=== PATIENT | female | born 1960 ===

== ENCOUNTER 2020-10-08 22:15 | Emergency (ER) | payer OTHER ==
--- NOTE | 2020-10-08 23:15 | EDM.PDOC ---
ED HPI GENERAL MEDICAL PROBLEM - General Chief Complaint: ENT Problem Stated Complaint: NOSEBLEED Time Seen by Provider: 10/08/20 22:52 - History of Present Illness INITIAL COMMENTS - FREE TEXT/NARRATIVE: History of present illness: [] Patient was pushing with her arms against machinery and fell forward and hit her nose. She has pain and swelling in her nose. She has no neck pain. She has no loss of consciousness. She has no other injury. She has no neurologic deficit. Review of systems: As per history of present illness and below otherwise all systems reviewed and negative. Past medical history: As per history of present illness and as reviewed below otherwise noncontributory. Surgical history: As per history of present illness and as reviewed below otherwise noncontributory. Social history: No reported history of drug or alcohol abuse. Family history: As per history of present illness and as reviewed below otherwise noncontributory. Physical exam: Constitutional - well developed, well-nourished and in no acute distress HEENT -abrasion on the bridge of her nose with tenderness and swelling of the nose. No septal hematoma. No deviation of the septum. Alignment of the nose is normal. Normocephalic, no evidence of trauma - external nose and mouth normal - no mass in neck and no JVD - mucosae moist EYES - full EOM, PERRL, no icterus - no evidence of inflammation, injection, or drainage Respiratory - no respiratory distress, equal bilateral expansion Musculoskeletal no gross deformity of long bones or joints - no tenderness, swelling or edema Neurologic - Alert and oriented times four - CN II-XII grossly intact - motor sensory and coordination symmetrically normal Psychiatric - appropriate mood and affect with normal thought content Hematologic - No petechiae or purpura - mucosa appropriate color and sclera not pale - normal nail bed color and refill Integument - no rash or evidence of trauma - normal turgor Diagnostics: [] Therapeutics: [] Impression: [] Plan: [] Definitive disposition and diagnosis as appropriate pending reevaluation and review of above. nasal area Pain Score (Numeric/FACES): 7 - Related Data Allergies Allergy/AdvReac Type Severity Reaction Status Date / Time Seasonal allergies Allergy Sneezing Uncoded 10/08/20 22:44 Home Meds: Home Meds Aspirin 81 mg PO 10/01/13 [History] Calcium Carbonate/Vitamin D3 [Calcium 500-Vit D3 200 Caplet] 1 tab PO DAILY 10/01/13 [History] Fluticasone Propionate [Flonase] 16 gm NS PRN 10/01/13 [History] Loratadine [Claritin] 10 mg PO DAILY PRN 10/01/13 [History] One A Day Women's 1 tab PO DAILY 10/01/13 [History] hydroCHLOROthiazide [Hydrochlorothiazide] 1 tab PO DAILY 10/01/13 [History] Desonide [Desonide 0.05%] 1 applic TOP ASDIRECTED 02/28/15 [History] Tamoxifen Citrate 1 tab PO DAILY 02/28/15 [History] Past Medical History Cardiovascular History: Reports: High Cholesterol Musculoskeletal History: Reports: Fracture Other Musculoskeletal History: hx: fracturing wrist Hematologic History: Reports: Anemia Oncologic (Cancer) History: Reports: Breast - Past Surgical History Other Oncologic Surgeries/Procedures: Breast lumpectomy ED ROS GENERAL - Review of Systems Review Of Systems: Comprehensive ROS is negative, except as noted in HPI. ED EXAM, GENERAL - Physical Exam Exam: See Below Free Text/Narrative:: My physical exam as in the HPI Course - Vital Signs Last Recorded V/S: Last Vital Signs Temp 36.2 C 10/08/20 22:44 Pulse 69 10/08/20 22:44 Resp 18 10/08/20 22:44 BP 173/74 H 10/08/20 22:44 Pulse Ox 97 10/08/20 22:44 Departure - Departure Time of Disposition: 23:13 Disposition: Home, Self-Care 01 Condition: Good Clinical Impression: Nasal fracture - Discharge Information Instructions: Nasal Fracture, [id number] Referrals: Edna Winn DO [Primary Care Provider] - Additional Instructions: [facility] - Primary Care [address] [place] [id number] [address] [id number] The following information is given to patients seen in the emergency department who are being discharged to home. This information is to outline your options for follow-up care. We provide all patients seen in our emergency department with a follow-up referral. The need for follow-up, as well as the timing and circumstances, are variable depending upon the specifics of your emergency department visit. If you don't have a primary care physician on staff, we will provide you with a referral. We always advise you to contact your personal physician following an emergency department visit to inform them of the circumstance of the visit and for follow-up with them and/or the need for any referrals to a consulting specialist. The emergency department will also refer you to a specialist when appropriate. This referral assures that you have the opportunity for follow-up care with a specialist. All of these measure are taken in an effort to provide you with optimal care, which includes your follow-up. Under all circumstances we always encourage you to contact your private physician who remains a resource for coordinating your care. When calling for follow-up care, please make the office aware that this follow-up is from your recent emergency room visit. If for any reason you are refused follow-up, please contact the [facility] Emergency Department at and asked to speak to the emergency department charge nurse. Sepsis Event Note (ED) - Focused Exam Vital Signs: Vital Signs Temp Pulse Resp BP Pulse Ox 10/08/20 22:44 36.2 C 69 18 173/74 H 97
[2020-10-09 00:33] VITALS: BP 151/72; PULSE 68
== END 2020-10-08 23:30 | disposition home or self-care (01) ==
LOC: MW.ED 22:15
DX: S02.2XXA Fracture of nasal bones, initial encounter for closed fracture (principal); D64.9 Anemia, unspecified; E78.00 Pure hypercholesterolemia, unspecified; Z91.048 Other nonmedicinal substance allergy status; Z79.82 Long term (current) use of aspirin; Z79.899 Other long term (current) drug therapy; W18.39XA Other fall on same level, initial encounter
CPT/HCPCS: 99283

== ENCOUNTER 2022-07-16 02:15 | Emergency (ER) | payer OTHER ==
[2022-07-16 02:45] VITALS: PULSE 66
[2022-07-16 03:33] LABS: BASOPHILS PERCENT AUTO 0.4 % (0.0-1.5); EOSINOPHILS ABSOLUTE AUTO 0.2 K/uL (0.0-0.7); EOSINOPHILS PERCENT AUTO 2.2 % (0.0-7.0); HEMOGLOBIN 13.5 g/dL (12.0-16.0); LYMPHOCYTES ABSOLUTE AUTO 2.4 K/uL (0.6-2.4); LYMPHOCYTES PERCENT AUTO 32.1 % (16.0-40.0); MEAN CORPUSCULAR HEMOGLOBIN 30.5 pg (27.0-32.0); MEAN CORPUSCULAR HGB CONC 33.8 g/dL (31.0-37.0); MEAN CORPUSCULAR VOLUME 90.3 fL (80.0-98.0); MONOCYTES ABSOLUTE AUTO 0.8 K/uL (0.0-0.8); MONOCYTES PERCENT AUTO 11.2 % (0.0-15.0); NEUTROPHILS PERCENT AUTO 54.1 % (48.0-80.0); PLATELET COUNT,PLT 303 K/uL (150-400); RED BLOOD CELL COUNT 4.43 M/uL (4.30-5.90); WHITE BLOOD CELL COUNT,WBC 7.33 K/uL (4.0-11.0)
[2022-07-16 03:55] LABS: A/G RATIO 1.2 (0.9-1.6); ALANINE AMINOTRANSFERASE,ALT 42 IU/L (14-63); ALBUMIN 3.9 g/dL (3.4-5.0); ALKALINE PHOSPHATASE 72 U/L (46-116); ASPARTATE AMNIOTRANSFERASE,AST 22 IU/L (15-37); BILIRUBIN TOTAL 0.4 mg/dL (0.2-1.0); BLOOD UREA NITROGEN,BUN 24 mg/dL (7.0-18.0); CALCIUM 8.9 mg/dL (8.5-10.1); CARBON DIOXIDE,CO2 28.7 mmol/L (21.0-32.0); CHLORIDE,CL 107 mmol/L (98-107); CREATININE 1.1 mg/dL (0.6-1.0); ESTIMATED GFR 56 mL/min (>60); GLUCOSE RANDOM 120 mg/dL (74-106); MAGNESIUM 2.1 mg/dL (1.8-2.4); POTASSIUM,K 3.6 mmol/L (3.5-5.1); PROTEIN TOTAL,TP 7.2 g/dL (6.4-8.2); SODIUM,NA 145 mmol/L (136-145)
[2022-07-16 04:31] VITALS: BP 130/58
== END 2022-07-16 04:30 | disposition home or self-care (01) ==
LOC: MW.ED 02:15
DX: I10 Essential (primary) hypertension (principal); M25.511 Pain in right shoulder; Z79.899 Other long term (current) drug therapy; Z91.048 Other nonmedicinal substance allergy status
CPT/HCPCS: 36415; 71045; 71045-26; 80053; 83735; 84484; 85025; 93005; 93010; 99283; 99284